=== PATIENT | male | born 1975 | race Caucasian/White ===

== ENCOUNTER 2020-08-05 04:21 | Emergency (ER) | payer MEDICAID ==
[2020-08-05] MEDS ORDERED: Tetracaine HCl/PF 0.5% 4 ML Bottle EYERT ONE (05:07)
--- NOTE | 2020-08-05 05:18 | EDM.PDOC ---
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 He is a dairy clerk PMH/Meds--denies NKDA Tob--1-2 cig/day EtOH/Drugs--denies left eye Pain Score (Numeric/FACES): 5 - Related Data Allergies Allergy/AdvReac Type Severity Reaction Status Date / Time No Known Allergies Allergy Verified 08/05/20 04:59 Home Meds: Home Meds NK [No Known Home Meds] 08/05/20 [History] Past Medical History - Infectious Disease History Infectious Disease History: Reports: Chicken Pox Social & Family History - Tobacco Use Tobacco Use Status *Q: Current Every Day Tobacco User Years of Tobacco use: 10 Packs/Tins Daily: 0.1 - Caffeine Use Caffeine Use: Reports: Coffee - Recreational Drug Use Recreational Drug Use: No ED ROS GENERAL - Review of Systems Review Of Systems: See Below Constitutional: Reports: No Symptoms HEENT: Reports: Eye Pain Respiratory: Reports: No Symptoms Cardiovascular: Reports: No Symptoms Endocrine: Reports: No Symptoms GI/Abdominal: Reports: No Symptoms : Reports: No Symptoms Musculoskeletal: Reports: No Symptoms Skin: Reports: No Symptoms Neurological: Reports: No Symptoms Psychiatric: Reports: No Symptoms Hematologic/Lymphatic: Reports: No Symptoms Immunologic: Reports: No Symptoms ED EXAM GENERAL W FULL EYE - Physical Exam Exam: See Below Exam Limited By: No Limitations General Appearance: Alert, WD/WN, Mild Distress (secondary to eye discomfort--left) Eye Exam: Left Eye: Conjunctival Injection, Bilateral Eye: EOMI, PERRL Eyelids: Bilateral: Normal Appearance Cornea Exam: Left: Examined with Flourescein (no foreign body or corneal abrasion noted on exam; ?-able initial uptake at 3-o'clock) Extraocular Movements: Bilateral: Intact Pupils: Normal Accommodation Pupillary Size: Bilateral: 5 mm Pupillary Reaction: Bilateral: Brisk Ears: Normal External Exam Neck: Normal Inspection, Supple, Full Range of Motion Respiratory/Chest: No Respiratory Distress Extremities: Normal Inspection Neurological: Alert, Oriented, Normal Cognition Psychiatric: Normal Affect, Normal Mood Skin Exam: Warm, Dry, Intact, Normal Color ED EYE w/ Add Procedure - Eye Procedure Alcaine Drops Administered: Yes (no FB or corneal abrasion/uptake noted) Course - Vital Signs Last Recorded V/S: Last Vital Signs Temp 97.8 F 08/05/20 05:02 Pulse 52 L 08/05/20 05:02 Resp 14 08/05/20 05:02 BP 105/75 08/05/20 05:02 Pulse Ox 99 08/05/20 05:02 Departure - Departure Time of Disposition: 05:27 Disposition: Home, Self-Care 01 Condition: Good Clinical Impression: Corneal irritation of left eye - Discharge Information *PRESCRIPTION DRUG MONITORING PROGRAM REVIEWED*: Not Applicable *COPY OF PRESCRIPTION DRUG MONITORING REPORT IN PATIENT ALEX: Not Applicable Instructions: Eye Foreign Body, [id number] Referrals: PCP,None [Primary Care Provider] - Additional Instructions: it is recommended that you contact your family eye doctor/laboratory sample carrier when clinic opens this morning for further evaluation and management antibiotic drops have been prescribed/provided in the ER today--use 1-2 drops every 4 hours while awake avoid rubbing your eyes as this can cause further irritation/damage if there is a foreign body in your cornea Sepsis Event Note (ED) - Evaluation Sepsis Screening Result: No Definite Risk - Focused Exam Vital Signs: Vital Signs Temp Pulse Resp BP Pulse Ox 08/05/20 05:02 97.8 F 52 L 14 105/75 99 08/05/20 04:59 97.8 F 52 L 14 105/75 99
[2020-08-05] MEDS ORDERED: Gentamicin 0.3% Ophth Soln 5 ML Bottle EYELF SCH (09:00)
== END 2020-08-05 05:48 | disposition home or self-care (01) ==
LOC: JP.ED 04:21
DX: H57.89 Other specified disorders of eye and adnexa (principal); Z72.0 Tobacco use
CPT/HCPCS: 99283